=== PATIENT | female | born 1990 | race Two or more races ===

== ENCOUNTER 2020-11-20 05:19 | Inpatient (IN) | payer OTHER ==
[~2020-11-20] VITALS: Ht 157.5 cm; Wt 82.5 kg
[2020-11-20] MEDS ORDERED: OXYTOCIN 30U/ 0.9% NaCL 500ML 500 ML ONE (05:53)
[2020-11-20] MEDS ORDERED: NEWBORN KIT ONE (05:54)
[2020-11-20] MEDS ORDERED: TERBUTALINE 1 MG/ML, 1ML SQ PRN (06:00)
[2020-11-20] MEDS ORDERED: OXYTOCIN 30U/ 0.9% NaCL 500ML 500 ML IV PRN (06:00)
[2020-11-20] MEDS ORDERED: PLEASE ENTER HEIGHT AND WEIGHT MC SCH (06:00)
[2020-11-20] MEDS ORDERED: FENTANYL PF 100 MCG/2ML IVPush PRN (06:00)
[2020-11-20] MEDS ORDERED: LACTATED RINGERS 1,000 ML IV SCH ×2 (06:00→08:00)
[2020-11-20] MEDS ORDERED: TERBUTALINE 1 MG/ML, 1ML IVPush PRN (06:00)
[2020-11-20] MEDS ORDERED: ONDANSETRON 2MG/ML, 2ML IVPush PRN (06:00)
[2020-11-20] MEDS ORDERED: FENTANYL PF 100 MCG/2ML IV PRN (06:00)
[2020-11-20 06:10] VITALS: BP 146/81
[2020-11-20 06:11] LABS: BASOPHILS % (AUTO) 1 % (0-1); EOSINOPHILS % (AUTO) 2 % (1-7); LYMPHOCYTES % (AUTO) 11 % (22-44); MEAN CORPUSCULAR HEMOGLOBIN 27.1 pg (27.0-34.8); MEAN CORPUSCULAR HGB CONC 33.2 g/dL (32.4-35.8); MEAN PLATELET VOLUME 11.2 fL (7.4-10.4); MONOCYTES % (AUTO) 5 % (2-9); NEUTROPHILS % (AUTO) 82 % (42-75); PLATELET COUNT 128 x10^3/uL (130-400); RED BLOOD COUNT 4.65 x10^6/uL (3.82-5.3); RED CELL DISTRIBUTION WIDTH 15.5 % (9.6-15.2)
[2020-11-20 06:36] LABS: MD SCAN
[2020-11-20] MEDS ORDERED: FENTANYL/BUPIV./NS/PF 250 ML EPIDCONT ONE (06:57)
[2020-11-20] MEDS ORDERED: LIDOCAINE/PF 1.5%-EPI 1:200K, 30ML ONE (06:58)
[2020-11-20] MEDS ORDERED: LACTATED RINGERS 1,000 ML IVBOLUS PRN (08:00)
[2020-11-20] MEDS ORDERED: EPHEDRINE 50 MG/ML, 1ML IVPush PRN (08:00)
[2020-11-20] MEDS ORDERED: FENTANYL/BUPIV./NS/PF 250 ML EPIDCONT SCH (08:00)
[2020-11-20] MEDS ORDERED: NALOXONE 0.4 MG/ML, 1ML IVPush PRN (08:00)
[2020-11-20] MEDS: OXYTOCIN 30U/ 0.9% NaCL 500ML 500 ML IV SCH ×2 (11:40→13:17)
[2020-11-20] MEDS ORDERED: ONDANSETRON 2MG/ML, 2ML IV PRN (12:00)
[2020-11-20] MEDS ORDERED: OXYcodone IR 5MG TABLET PO PRN (12:00)
[2020-11-20] MEDS ORDERED: SIMETHICONE 80 MG CHEW TAB PO PRN (12:00)
[2020-11-20] MEDS ORDERED: MISOPROSTOL 200 MCG TABLET PR PRN (12:00)
[2020-11-20] MEDS ORDERED: ACETAMINOPHEN 325 MG TABLET PO PRN (12:00)
[2020-11-20] MEDS ORDERED: OXYcodone/APAP 5/325MG TABLET ONE (12:05)
[2020-11-20] MEDS ORDERED: IBUPROFEN 600 MG TABLET ONE (12:05)
[2020-11-20] MEDS: IBUPROFEN 600 MG TABLET PO PRN ×2 (12:07→20:11)
[2020-11-20] MEDS: OXYcodone/APAP 5/325MG TABLET PO PRN ×3 (12:07→20:11)
[2020-11-20 14:05] VITALS: BP 121/75
[2020-11-20 17:35] VITALS: BP 116/77
[2020-11-20 19:30] VITALS: BP 122/75
[2020-11-20 19:57] LABS: BASOPHILS % (AUTO) 0 % (0-1); EOSINOPHILS % (AUTO) 0 % (1-7); LYMPHOCYTES % (AUTO) 9 % (22-44); MEAN CORPUSCULAR HGB CONC 32.7 g/dL (32.4-35.8); MEAN PLATELET VOLUME 11.5 fL (7.4-10.4); MONOCYTES % (AUTO) 5 % (2-9); NEUTROPHILS % (AUTO) 86 % (42-75); PLATELET COUNT 127 x10^3/uL (130-400); RED BLOOD COUNT 4.26 x10^6/uL (3.82-5.3); RED CELL DISTRIBUTION WIDTH 15.4 % (9.6-15.2)
[2020-11-20] MEDS: DOCUSATE 100 MG CAPSULE PO PRN (20:11)
[2020-11-20 20:47] LABS: MD SCAN
[2020-11-21 00:40] VITALS: BP 127/83
[2020-11-21] MEDS: OXYcodone/APAP 5/325MG TABLET PO PRN ×2 (00:46→07:28)
[2020-11-21] MEDS: IBUPROFEN 600 MG TABLET PO PRN (04:15)
[2020-11-21 04:37] VITALS: BP 111/72
[2020-11-21] MEDS: DOCUSATE 100 MG CAPSULE PO PRN (07:27)
[2020-11-21 07:30] VITALS: BP 117/77
[2020-11-21] MEDS: OXYTOCIN 30U/ 0.9% NaCL 500ML 500 ML IV SCH (08:00)
[2020-11-21] MEDS ORDERED: PRENATAL VIT/IRON/FA 1 EACH TABLET PO SCH (09:00)
[2020-11-21] MEDS ORDERED: DOCU-131 PO (09:39)
[2020-11-21] MEDS ORDERED: IBUP-1222 PO (09:39)
[2020-11-21] MEDS ORDERED: OXYC1TAB14 PO (09:40)
[2020-11-21] MEDS ORDERED: DIPH,PERTUSS(ACELL),TET VAC/PF NC IM-VACC ONE (10:00)
== END 2020-11-21 12:20 | disposition home or self-care (01) | DRG 807 ==
LOC: LDOP 05:19 → LDIP 05:52 → 2NW 13:48
PROVIDERS: ADMIT Obstetrics & Gynecology; ATTEND Obstetrics & Gynecology
PROC: 10E0XZZ Delivery of Products of Conception, External Approach (ICD-10-PCS; principal; 2020-11-20)
PROC: 0KQM0ZZ Repair Perineum Muscle, Open Approach (ICD-10-PCS; 2020-11-20)
PROC: 0UQMXZZ Repair Vulva, External Approach (ICD-10-PCS; 2020-11-20)
PROC: 3E0R3BZ Introduction of Anesthetic Agent into Spinal Canal, Percutaneous Approach (ICD-10-PCS; 2020-11-20)
PROC: 00HU33Z Insertion of Infusion Device into Spinal Canal, Percutaneous Approach (ICD-10-PCS; 2020-11-20)
PROC: 3E0234Z Introduction of Serum, Toxoid and Vaccine into Muscle, Percutaneous Approach (ICD-10-PCS; 2020-11-21)
DX: O70.1 Second degree perineal laceration during delivery (principal); Z37.0 Single live birth; Z20.822 Contact with and (suspected) exposure to COVID-19; Z23 Encounter for immunization; Z3A.39 39 weeks gestation of pregnancy; Z82.49 Family history of ischemic heart disease and other diseases of the circulatory system
CPT/HCPCS: 36415; 85025; 86592; 86850; 86900; 87635; 89060; 90715; G0378; J3010; J2590; J7120; Q0114